=== PATIENT | female | born 1995 | race Caucasian/White ===

== ENCOUNTER 2016-10-16 17:47 | Emergency (ER) | payer MEDICAID, OTHER ==
[~2016-10-16] VITALS: Ht 149.9 cm; Wt 47.6 kg
--- OUTSIDE RECORDS SUMMARY | 2016-10-16 17:55 | XMS REPORT | Continuity of Care Document ---
Author Author Interface Organization Interface Address Unknown Phone Unavailable Problems Problem Status Onset Date Classification Date Reported Comments Source Chronic constipation (disorder) Active Problem 2012 [facility] Depression - motion (qualifier value) Active Problem [facility] Gastroesophageal reflux disease (disorder) Active Problem 09/04/2013 [facility] Medications Medication Details Route Status Patient Instructions Ordering Provider Order Date Source Abreva Refill(s) 0 [facility] Sprintec oral tablet 1 tablet, PO, qDay, as directed. , # 28 tablet, Refill(s) 11, Pharmacy: [facility]/pharmacy #[id number] </br>as directed. Active [facility] melatonin Refill(s) 0 [facility] MiraLax Refill(s) 0 [facility] CeleXA Refill(s) 0 [facility] Senokot S 50 mg-8.6 mg oral tablet 2 tablet, PO, daily , # 60 tablet, Refill(s) 3, Pharmacy: [facility]/pharmacy #[id number] [facility] Zantac 150 mg oral tablet 150 mg=1 tablet, PO, BID, # 60 tablet, Refill(s) 3, Pharmacy: [facility]/pharmacy #[id number] [facility] esomeprazole 20 mg oral delayed release capsule 20 mg= 1 capsule, PO, qDay, may substitute, # 30 capsule, Refill(s) 1, Pharmacy: [facility]/ pharmacy #[id number] </br>may substitute [facility] Allergies, Adverse Reactions, Alerts Substance Category Reaction Severity Reaction type Status Date Reported Comments Source Immunizations Immunization Date Given Site Status Last Updated Comments Source Results Order Name Results Value Reference Range Date Interpretation Comments Source Vital Signs Vital Sign Value Date Comments Source Heart Rate 76 bpm 08/17/2013 [facility] Systolic Blood Pressure Cuff Monitored 119 mm[Hg] 08/17/2013 [facility] Diastolic Blood Pressure Cuff Monitored 73 mm[Hg] 08/17/2013 [facility] Total Pain Calculation 5 [facility] Total Pain Calculation 0 [facility] NBP Position Sitting </br>(08/23/2013 12:28:00) <sup> </sup> 08/23/2013 [facility] Temperature Celsius 36.9 Sivan 08/23/2013 [facility] Heart Rate 93 bpm 08/23/2013 [facility] Respiratory Rate 20 BR/min [facility] NBP Cuff Sizes Small Adult </br>(08/23/2013 12:28:00) <sup> </sup> 08/23/2013 [facility] Diastolic Blood Pressure Cuff Monitored 79 mm[Hg] 08/23/2013 [facility] Temperature Route Oral </br>(08/23/2013 12:28:00) <sup> </sup> 08/23/2013 [facility] NBP Activity Calm </br>(08/23/2013 12:28:00) <sup> </sup> 08/23/2013 [facility] NBP Extremity Arm, left </br>(08/23/2013 12:28:00) <sup> </sup> 08/23/2013 [facility] Systolic Blood Pressure Cuff Monitored 121 mm[Hg] 08/23/2013 [facility] Encounters Location Location Details Encounter Type Encounter Number Reason For Visit Attending Provider ADM Date DC Date Status Source CMB CMB CLI [id number] constipation; george Atkins 08/17/2013 08/17/2013 Active [facility] CMS ER [id number] Mouth Sores Paula Kennedy 08/23/2013 08/23/2013 Active [facility] CMB CMB CLI [id number] SIMON [facility] CMKwasi CLI [id number] William Reed 09/03/[id number] [facility] Procedures Procedure Code Date Perfomer Comments Source
--- NOTE | 2016-10-16 19:37 | ED Abdominal Pain ---
General Chief Complaint: Back Problems Stated Complaint: L RIB/BACK PAIN Nursing Triage Note: pt reports left upper abd pain that radiates to back at times. she describes it as, "under her left rib." no known injury Source of Information: Patient, RN Notes Reviewed Exam Limitations: No Limitations History of Present Illness Time Seen By Provider: 19:37 Initial Comments As above. Timing/Duration: Other (uncertain exact onset) Severity/Quality: Moderate (8/10), Sharp, Stabbing Location: LUQ Radiation: Flank (left) Activities at Onset: Other (unknown) Modifying Factors: Improves With Other (none) Associated Symptoms: Denies Symptoms Allergies and Home Medications Allergies Coded Allergies: vancomycin (Unverified Adverse Reaction, Unknown, fever,rash, 10/16/16) Home Medications No Active Prescriptions or Reported Meds Review of Systems Constitutional: see HPI Gastrointestinal: See HPI Abdominal Pain (LUQ) Musculoskeletal: see HPI back pain (left flank) All Other Systems Reviewed Negative Unless Noted: Yes (Negative excepted noted.) Past Nxognry-Qvouyb-Yaqejx Hx Patient Social History Alcohol Use: Occasionally Uses Recreational Drug Use: No Smoking Status: Current Everyday Smoker Recent Foreign Travel: No Contact w/Someone Who Travel: No Recent Infectious Disease Expo: No Recent Hopitalizations: No Physical Abuse Screen: No Sexual Abuse: No Seasonal Allergies Seasonal Allergies: No Surgeries HX Surgeries: Yes (I&D) Respiratory Hx Respiratory Disorders: No Cardiovascular Hx Cardiac Disorders: No Neurological Hx Neurological Disorders: No Physical Exam Vital Signs VS - Last 72 Hours, by Label 10/16/16 10/16/16 18:00 22:15 Temp 96.6 97.7 Pulse 82 88 Resp 16 16 B/P 104/70 Pulse Ox 97 O2 Delivery Room Air Capillary Refill : General Appearance: WD/WN no apparent distress Respiratory: no respiratory distress Cardiovascular: regular rate, rhythm Gastrointestinal: non tender soft Rectal: deferred Back: No CVA tenderness (L) Neurologic/Psychiatric: no motor/sensory deficits alert oriented x 3 Skin: warm/dry Progress/Results/Core Measures Results/Orders Lab Results Laboratory Tests Test 10/16/16 19:55 Range/Units Alanine Aminotransferase (ALT/SGPT) 13 0-55 U/L Albumin 4.3 3.2-4.5 G/DL Alkaline Phosphatase 100 40-136 U/L Anion Gap 8 5-14 MMOL/L Aspartate Amino Transf (AST/SGOT) 17 5-34 U/L BUN/Creatinine Ratio 17 Basophils # (Auto) 0.1 0.0-0.1 10^3/uL Basophils (%) (Auto) 1 0-10 % Blood Urea Nitrogen 12 7-18 MG/DL Calcium Level 9.3 8.5-10.1 MG/DL Carbon Dioxide Level 25 21-32 MMOL/L Chloride Level 109 H 98-107 MMOL/L Creatinine 0.71 0.60-1.30 MG/DL Eosinophils # (Auto) 0.2 0.0-0.3 10^3/uL Eosinophils (%) (Auto) 3 0-10 % Estimat Glomerular Filtration Rate > 60 Glucose Level 76 70-105 MG/DL Hematocrit 37 35-52 % Hemoglobin 12.4 11.5-16.0 G/DL Lipase 27 8-78 U/L Lymphocytes # (Auto) 3.2 1.0-4.0 X 10^3 Lymphocytes (%) (Auto) 52 H 12-44 % Mean Corpuscular Hemoglobin 28 25-34 PG Mean Corpuscular Hemoglobin Concent 33 32-36 G/DL Mean Corpuscular Volume 85 80-99 FL Mean Platelet Volume 9.7 7.4-10.4 FL Monocytes # (Auto) 0.5 0.0-1.0 X 10^3 Monocytes (%) (Auto) 9 0-12 % Neutrophils # (Auto) 2.2 1.8-7.8 X 10^3 Neutrophils (%) (Auto) 36 L 42-75 % Platelet Count 523 H 130-400 10^3/uL Potassium Level 4.2 3.6-5.0 MMOL/L Red Blood Count 4.37 4.35-5.85 10^6/uL Red Cell Distribution Width 14.9 H 10.0-14.5 % Sodium Level 142 135-145 MMOL/L Total Bilirubin 0.3 0.1-1.0 MG/DL Total Protein 7.1 6.4-8.2 G/DL Urine Bacteria TRACE /HPF Urine Bilirubin NEGATIVE NEGATIVE Urine Casts NONE /LPF Urine Clarity CLEAR Urine Color YELLOW Urine Crystals NONE /LPF Urine Culture Indicated NO Urine Glucose (UA) NEGATIVE NEGATIVE Urine Ketones NEGATIVE NEGATIVE Urine Leukocyte Esterase NEGATIVE NEGATIVE Urine Mucus LARGE H /LPF Urine Nitrite NEGATIVE NEGATIVE Urine Test NEGATIVE NEGATIVE Urine Protein NEGATIVE NEGATIVE Urine RBC NONE /HPF Urine RBC (Auto) NEGATIVE NEGATIVE Urine Specific [place] 1.020 1.016-1.022 Urine Squamous Epithelial Cells 10-25 H /HPF Urine Urobilinogen 1 NORMAL MG/DL Urine WBC 2-5 /HPF Urine pH 6 5-9 White Blood Count 6.2 4.3-11.0 10^3/uL My Orders Orders-SASHA CONWAY DO Saline Lock/Iv-Start (10/16/16 19:37) Cbc With Automated Diff (10/16/16 19:37) Comprehensive Metabolic Panel (10/16/16 19:37) Hcg,Qualitative Urine (10/16/16 19:37) Lipase (10/16/16 19:37) Ua Culture If Indicated (10/16/16 19:37) Ct Abdomen/Pelvis Wo (10/16/16 20:33) Vital Signs/I&O Vital Sign - Last 12Hours 10/16/16 10/16/16 18:00 22:15 Temp 96.6 97.7 Pulse 82 88 Resp 16 16 B/P 104/70 Pulse Ox 97 O2 Delivery Room Air Diagnostic Imaging Diagonstic Imaging: CT Plain Films/CT/US/NM/MRI: abdomen, pelvis (nothing acute) Departure Impression Impression: Primary Impression: Renal lithiasis Additional Impression: LUQ abdominal pain Disposition: 01 HOME, SELF-CARE Condition: Stable Departure-Patient Inst. Decision time for Depature: 22:08 Referrals: STEVIE RUTH MD Patient Instructions: Kidney Stones (DC) Scripts No Active Prescriptions or Reported Meds SASHA OCNWAY DO Oct 16, 2016 19:37
[2016-10-16 20:10] LABS: BASOPHILS # (AUTO) 0.1 10^3/uL (0.0-0.1); BASOPHILS % (AUTO) 1 % (0-10); EOSINOPHILS # (AUTO) 0.2 10^3/uL (0.0-0.3); EOSINOPHILS % (AUTO) 3 % (0-10); LYMPHOCYTES # (AUTO) 3.2 X 10^3 (1.0-4.0); LYMPHOCYTES % (AUTO) 52 % (12-44); MEAN CORPUSCULAR HEMOGLOBIN 28 PG (25-34); MEAN CORPUSCULAR HGB CONC 33 G/DL (32-36); MEAN CORPUSCULAR VOLUME 85 FL (80-99); MEAN PLATELET VOLUME 9.7 FL (7.4-10.4); MONOCYTES # (AUTO) 0.5 X 10^3 (0.0-1.0); MONOCYTES % (AUTO) 9 % (0-12); NEUTROPHILS # (AUTO) 2.2 X 10^3 (1.8-7.8); NEUTROPHILS % (AUTO) 36 % (42-75); PLATELET COUNT 523 10^3/uL (130-400); RED BLOOD COUNT 4.37 10^6/uL (4.35-5.85); RED CELL DISTRIBUTION WIDTH 14.9 % (10.0-14.5); WHITE BLOOD COUNT 6.2 10^3/uL (4.3-11.0)
[2016-10-16 20:16] LABS: BILIRUBIN,URINE NEGATIVE (NEGATIVE); KETONES,URINE NEGATIVE (NEGATIVE); LEUKOCYTE ESTERASE ,URINE NEGATIVE (NEGATIVE); NITRITE,URINE NEGATIVE (NEGATIVE); PH,URINE 6 (5-9); PROTEIN,URINE NEGATIVE (NEGATIVE); UROBILINOGEN,URINE 1 MG/DL (NORMAL)
[2016-10-16 20:26] LABS: ALANINE AMINOTRANSFERASE 13 U/L (0-55); ALBUMIN 4.3 G/DL (3.2-4.5); ANION GAP 8 MMOL/L (5-14); ASPARTATE AMINO TRANSFERASE 17 U/L (5-34); BILIRUBIN,TOTAL 0.3 MG/DL (0.1-1.0); BLOOD UREA NITROGEN 12 MG/DL (7-18); BUN/CREATININE RATIO 17; CALCIUM 9.3 MG/DL (8.5-10.1); CARBON DIOXIDE 25 MMOL/L (21-32); CHLORIDE 109 MMOL/L (98-107); CREATININE SERUM 0.71 MG/DL (0.60-1.30); GFR ESTIMATED > 60; GLUCOSE 76 MG/DL (70-105); LIPASE 27 U/L (8-78); POTASSIUM 4.2 MMOL/L (3.6-5.0); SODIUM 142 MMOL/L (135-145); TOTAL PROTEIN 7.1 G/DL (6.4-8.2)
--- NOTE | 2016-10-16 21:29 | Diagnostic Imaging Report ---
PROCEDURE: CT abdomen and pelvis without contrast. TECHNIQUE: Multiple contiguous axial images were obtained through the abdomen and pelvis without the use of intravenous contrast. INDICATION: Left upper quadrant pain. COMPARISON: There are no prior studies available for comparison. FINDINGS: There are two or three very small (1-23 mm) calculi within both kidneys. There is no evidence for urolithiasis, however, and the kidneys do not seem to be obstructed. There is no pelvic mass or free fluid collection evident. The pelvic contents are difficult to visualize, however, due to the patient's paucity of retroperitoneal fat. If further evaluation of the pelvis for an acute abnormality is desired, then ultrasound would be recommended. The appendix was not well imaged but there are no indirect signs of acute appendicitis. The liver, spleen, pancreas, adrenals, gallbladder, aorta and inferior vena cava are unremarkable for an acute abnormality. The stomach is not well distended and consequently difficult to assess. The lung bases are clear. The bone windows show no evidence for a fracture or for a destructive lesion. IMPRESSION: 1. There are small nonobstructive calculi within both kidneys but there is no evidence for obstruction of either collecting system. 2. There is no acute abnormality in the abdomen or pelvis noted otherwise. 3. The pelvis was difficult to evaluate due to the patient's possibly of retroperitoneal fat.. If further study is desired, then ultrasound would be recommended. Dictated by: Dictated on workstation # [id number]
== END 2016-10-16 22:15 | disposition home or self-care (01) ==
LOC: ER 17:50
DX: R10.12 Left upper quadrant pain (principal); N20.0 Calculus of kidney; F17.210 Nicotine dependence, cigarettes, uncomplicated
CPT/HCPCS: 36415; 74176; 80053; 81000; 83690; 84703; 85025